=== PATIENT | male | born 2005 | race Hispanic/Latino ===

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

== ENCOUNTER 2025-06-09 15:10 | Emergency (ER) | payer OTHER, SELFPAY | END 2025-06-09 16:30 | disposition home or self-care (01) | LOC: NAV ERS 15:10 | DX: B34.9 Viral infection, unspecified (principal) | CPT/HCPCS: 87428; 99283 ==